=== PATIENT | male | born 2000 | race Caucasian/White ===

== ENCOUNTER 2018-08-09 17:37 | Emergency (ER) | payer BC ==
[~2018-08-09] VITALS: Ht 177.8 cm; Wt 85.5 kg
[~2018-08-09 17:37] MED LIST: TYLENOL PRN
[2018-08-09 18:31] VITALS: BP 144/69; PULSE 68; RESP 19; Ht 177.8 cm; Wt 85.5 kg
--- NOTE | 2018-08-09 20:12 | ERD ---
ER Documentation Chief Complaint Chief Complaint ABD PAIN WITH NAUSEA XTODAY HPI This is a 17-year-old male who presents with right mid abdominal pain that began earlier today all of a sudden. Pain is worse when he leans forward. The pain lasts only a few minutes and now he is completely asymptomatic. No fever. No nausea vomiting or diarrhea. No urinary symptoms. No testicular pain. ROS All systems reviewed and are negative except as per history of present illness. Medications Home Meds Reported Medications [Tylenol Prn] No Conflict Check 07/23/09 Allergies Allergies: Coded Allergies: No Known Allergies (Verified Allergy, Mild, 07/23/09) PMhx/Soc Medical and Surgical Hx: pt denies Medical Hx, pt denies Surgical Hx History of Surgery: No Hx Neurological Disorder: No Hx Respiratory Disorders: No Hx Cardiac Disorders: No Hx Miscellaneous Medical Probl: No Hx Alcohol Use: No Hx Substance Use: No Hx Tobacco Use: No Smoking Status: Never smoker FmHx Family History: No diabetes Physical Exam Vitals Vital Signs Date Temp Pulse Resp B/P (MAP) Pulse Ox O2 O2 Flow FiO2 Time Delivery Rate 08/09/18 98.9 68 19 144/69 99 18:31 (94) Physical Exam INITIAL VITAL SIGNS: Reviewed by me GENERAL: Awake, alert and oriented x 4, well appearing, nontoxic, speaking in full sentences. No acute distress HEAD: Atraumatic NECK: Supple. No masses. Full range of motion. No meningismus. No midline tenderness. RESPIRATORY: Clear to auscultation bilaterally. Symmetric chest wall rise. No wheezing or rales. No accessory muscle use. CV: Regular rate and rhythm. No murmurs, rubs, or gallops. ABDOMEN: Soft, non-distended. Nontender. Negative [place]. Negative [place] point tenderness. No CVA tenderness bilaterally. No guarding. No rebound. : Deffered. Procedures/MDM 17-year-old male had abdominal pain today in the right side but it has since resolved. His exam is normal he has no tenderness throughout. The differential diagnosis includes but is not limited to appendicitis, cholelithiasis, cholecystitis, pancreatitis, hepatitis, gastritis, peptic ulcer disease, bowel obstruction, diverticulitis, renal disease including stones, torsion, AAA, pyelonephritis, and others. She should return in 8 to 12 hours for follow-up examination if he has worsening of his pain or sooner. Patient counseled regarding my diagnostic impression and care plan. Prior to discharge all questions answered. Pt agrees with treatment plan and understands strict return precautions. Pt is instructed to follow up with primary care provider within 24- 48 hours. Precautionary instructions provided including instructions to return to the ER if not improving or for any worsening or changing symptoms or concerns. Departure Diagnosis: Primary Impression: Abdominal pain Condition: Stable Patient Instructions: Abdominal Pain Additional Instructions: Call your primary care doctor TOMORROW for an appointment during the next 1-2 days.See the doctor sooner or return here if your condition worsens before your appointment time. VALERIANO SHARMA PA-C Aug 09, 2018 20:12 ANA FERMIN MD Aug 09, 2018 21:37
== END 2018-08-09 20:19 | disposition home or self-care (01) ==
LOC: FTE 17:37
DX: R10.9 Unspecified abdominal pain (principal)
CPT/HCPCS: 99282